=== PATIENT | female | born 1940 ===

== ENCOUNTER 2017-06-17 07:23 | Day surgery (SDC) | payer MEDICARE, MEDICAID ==
[2017-06-17] MEDS ORDERED: Propofol 10 mg/ml Inj (20 ML) ONE ×3 (10:44→10:57)
[2017-06-17] MEDS ORDERED: Lactated Ringer's 500 ML IV SCH (10:45)
[2017-06-17] MEDS ORDERED: Glucagon Recombinant 1 mg Inj ONE (10:56)
[2017-06-17] MEDS ORDERED: Midazolam 2 MG/2 ML VIAL ONE (10:56)
[2017-06-17 12:23] VITALS: O2SAT 100
[2017-06-17 13:09] VITALS: BP 165/67; PULSE 80; RESP 19; TEMP 97.2
== END 2017-06-17 13:05 | disposition home or self-care (01) ==
LOC: C.ENDO 07:23
PROVIDERS: ATTEND Internal Medicine Gastroenterology
DX: K22.2 Esophageal obstruction (principal); I10 Essential (primary) hypertension; R63.4 Abnormal weight loss
CPT/HCPCS: 43235; 88305; J1610; J2250; J2704; J7120

== ENCOUNTER 2017-12-26 09:04 | Inpatient (IN) | payer MEDICARE, MEDICAID ==
--- NOTE | 2017-12-26 09:35 | C.PDOC ---
History Of Present Illness 77 year old female is referred to ED by PMD for admission for symptomatic anemia. Patient has history of esophageal stricture, pending dilation 12/27. Patient is s/p outpatient labs with H/H 02/09. Family states unknown source. Denies GI bleed symptoms. Pt complains of worsening generalized weakness, difficulty eating and swallowing due to throat pain for the past several months. Pt is currently asymptomatic. referred BY PMD FOR ADMISSION FOR SYMPTOMATIC ANEMIA. HO ESOPHAGEAL STRICTURE, PENDING DILATION 12/27. S/P OUTPT LABS W H/H 02/09. FAMILY STATES UNK SOURCE. DENIES GI BLEED SX. CO WORSENING GEN WEAKNESS, DIFFICULTY EATING AND SWALLOWING DUE TO THROAT PAIN X SEV MONTHS. CURRENTLY ASYMPT. EXAM NAD NONTOXIC HEENT +PALLOR ABD NEG GOOD TURGOR REMAINDER NEG MDM PT W REFERRAL NOTE FROM PMD, INSTRUCTION FOR ADMISSION. Time Seen by Provider: 12/26/17 09:20 Chief Complaint (Nursing): Abnormal Labs History Per: Patient History/Exam Limitations: no limitations Onset/Duration Of Symptoms: Days Current Symptoms Are (Timing): Still Present Recent travel outside of the [place]: No Additional History Per: Patient Past Medical History Reviewed: Historical Data, Nursing Documentation, Vital Signs Vital Signs: Last Vital Signs Temp 98.4 F 12/26/17 10:30 Pulse 69 12/26/17 10:30 Resp 18 12/26/17 10:30 BP 158/72 H 12/26/17 10:30 Pulse Ox 100 12/26/17 10:30 - Medical History PMH: Arthritis, HTN Denies: Chronic Kidney Disease Family History: States: Unknown Family Hx - Social History Hx Alcohol Use: No Hx Substance Use: No - Immunization History Hx Tetanus Toxoid Vaccination: No Hx Influenza Vaccination: No Hx Pneumococcal Vaccination: No Review Of Systems Except As Marked, All Systems Reviewed And Found Negative. Constitutional: Positive for: Weakness. Negative for: Fever, Chills ENT: Positive for: Throat Pain Cardiovascular: Negative for: Chest Pain Respiratory: Negative for: Shortness of Breath Gastrointestinal: Negative for: Vomiting, Abdominal Pain, Diarrhea, Melena, Hematochezia, Hematemesis Physical Exam - Physical Exam Appears: Non-toxic, No Acute Distress Skin: Warm, Dry, Pale (pallor), Other (good turgor) Head: Atraumatic, Normacephalic Eye(s): bilateral: Normal Inspection Oral Mucosa: Moist Neck: Normal ROM, Supple Cardiovascular: Rhythm Regular, No Murmur Respiratory: Normal Breath Sounds, No Rales, No Rhonchi, No Wheezing Gastrointestinal/Abdominal: Soft, No Tenderness, No Guarding, No Rebound Back: No CVA Tenderness Extremity: Normal ROM Neurological/Psych: Oriented x3, Normal Speech ED Course And Treatment - Laboratory Results Result Diagrams: 12/26/17 09:53 12/26/17 09:53 ECG: Interpreted By Me, Viewed By Me ECG Rhythm: Sinus Rhythm ECG Interpretation: No Acute Changes Rate From EC (bpm) O2 Sat by Pulse Oximetry: 96 (RA) Pulse Ox Interpretation: Normal - Radiology CXR: Interpreted by Me, Viewed By Me CXR Interpretation: Yes: No Acute Disease Medical Decision Making Medical Decision Making: Pt has referral note from PMD with instructions for admission. Disposition Counseled Patient/Family Regarding: Studies Performed, Diagnosis - Disposition Disposition: HOSPITALIZED Disposition Time: 09:38 Condition: STABLE - POA Present On Arrival: None - Clinical Impression Clinical Impression: Symptomatic anemia, Esophageal stricture - Scribe Statement The provider has reviewed the documentation as recorded by the Scribe Rosette Ruggiero All medical record entries made by the Scribe were at my direction and personally dictated by me. I have reviewed the chart and agree that the record accurately reflects my personal performance of the history, physical exam, medical decision making, and the department course for this patient. I have also personally directed, reviewed, and agree with the discharge instructions and disposition. Decision To Admit - Pt Status Changed To: Hospital Disposition Of: Inpatient - Admit Certification Admit to Inpatient:: After my assessment, the patient will require hospitalization for at least two midnights. This is because of the severity of symptoms shown, intensity of services needed, and/or the medical risk in this patient being treated as an outpatient. - InPatient: Physician Admission Certification: I certify that this patient requires 2 or more midnights of care for the following reason:: SEE NOTE - . Bed Request Type: Regular Admitting Physician: Kalia Ruggiero Patient Diagnosis: Symptomatic anemia, Esophageal stricture
[2017-12-26 10:01] LABS: BASO # 0.1 K/uL (0.0-0.2); BASO % 2.2 % (0.0-2.0); EOS # 0.2 K/uL (0.0-0.7); EOS % 3.2 % (0.0-4.0); LYMPH # 1.3 K/uL (1.0-4.3); LYMPH % 24.9 % (20.0-40.0); MEAN CELL VOLUME 59.2 fL (81.0-99.0); MEAN CORPUSCULAR HEMOGLOBIN 17.9 pg (27.0-31.0); MEAN CORPUSCULAR HGB CONC 30.3 g/dL (33.0-37.0); MEAN PLATELET VOLUME 9.1 fL (7.2-11.7); MONO # 0.4 K/uL (0.0-0.8); MONO % 7.5 % (0.0-10.0); NEUT # 3.3 K/uL (1.8-7.0); NEUT % 62.2 % (50.0-75.0); NRBC % 0.1 % (0.0-2.0); RBC 3.43 Mil/uL (3.80-5.20); RED CELL DISTRIBUTION WIDTH 20.1 % (11.5-14.5); WHITE BLOOD COUNT 5.3 K/uL (4.8-10.8)
[2017-12-26 10:11] LABS: HEMOGLOBIN 6.1 g/dL (11.0-16.0)
[2017-12-26 10:19] LABS: INR 1.1; PROTHROMBIN TIME 12.1 SECONDS (9.7-12.2)
[2017-12-26 10:25] LABS: BLOOD UREA NITROGEN 12 mg/dL (7-17); CALCIUM 8.8 mg/dl (8.6-10.4); GFR AFRICAN-AMERICAN > 60; GFR NON-AFRICAN AMERICAN > 60
--- NOTE | 2017-12-26 11:27 | RAD ---
PROCEDURE: CHEST RADIOGRAPH, 1 VIEW HISTORY: ANEMIA COMPARISON: Comparison chest dated 03/14/2015 FINDINGS: LUNGS: Poor inspiration with low lung volumes, crowded bronchovascular markings and mild bibasilar atelectasis. PLEURA: No pneumothorax or pleural fluid seen. CARDIOVASCULAR: Heart size is upper limits of normal. . Dense mitral valve calcification present. OSSEOUS STRUCTURES: Degenerative osteoarthritis both shoulder girdles. . Multilevel degenerative spondylosis of the thoracic spine. VISUALIZED UPPER ABDOMEN: Normal. OTHER FINDINGS: None. IMPRESSION: Poor inspiration with low lung volumes, crowded bronchovascular markings and mild bibasilar atelectasis.
[2017-12-26] MEDS ORDERED: Enoxaparin 30 mg Syringe SC SCH (11:45)
[2017-12-27 06:44] LABS: FREE T4 1.25 ng/dL (0.78-2.19)
[2017-12-27 06:50] LABS: LDL CHOLESTEROL 90 mg/dL (0-129)
[2017-12-27 06:53] LABS: BLOOD UREA NITROGEN 9 mg/dL (7-17); CALCIUM 9.3 mg/dl (8.6-10.4); GFR AFRICAN-AMERICAN > 60; GFR NON-AFRICAN AMERICAN > 60; HDL CHOLESTEROL 36 mg/dL (30-70)
[2017-12-27 06:59] LABS: BASO # 0.2 K/uL (0.0-0.2); EOS # 0.4 K/uL (0.0-0.7); EOS % 4.6 % (0.0-4.0); HEMOGLOBIN 10.2 g/dL (11.0-16.0); LYMPH % 25.2 % (20.0-40.0); MEAN CELL VOLUME 68.9 fL (81.0-99.0); MEAN CORPUSCULAR HGB CONC 31.9 g/dL (33.0-37.0); MONO # 0.6 K/uL (0.0-0.8); MONO % 7.8 % (0.0-10.0); NEUT # 4.8 K/uL (1.8-7.0); NEUT % 60.4 % (50.0-75.0); NRBC % 0.1 % (0.0-2.0); RBC 4.63 Mil/uL (3.80-5.20); RED CELL DISTRIBUTION WIDTH 28.5 % (11.5-14.5)
--- NOTE | 2017-12-27 07:19 | HP ---
HISTORY OF PRESENT ILLNESS: This is a 77-year-old [place]yanese female who came to the office with history of dizziness, fatigue, dysphagia, and loss of appetite. The patient complains of loss of weight also. The patient has history going on for the last few months. The patient was evaluated by Dr. Kyle Butt for GI complaints. The patient found to have esophageal stricture. The patient never went for followup. Now, the patient has symptomatic anemia with hemoglobin 6.2. No other complaints. No fever, no chills. REVIEW OF SYSTEMS: CARDIOVASCULAR: Negative for chest pain. RESPIRATORY: Negative for shortness of breath. GI: Dysphagia present. REGENERATOR OPERATOR: No focal neurological deficit. No edema of the legs. PSYCHIATRIC: The patient is stable. : No urinary complaints. All other systems negative. PAST MEDICAL HISTORY: History of hypertension, no diabetes, history of arthritis, atherosclerotic heart disease. ALLERGIES: NO KNOWN ALLERGIES. MEDICATIONS: The patient on amlodipine for high blood pressure. SOCIAL HISTORY: Nonsmoker, nonalcoholic, no IVDA. PHYSICAL EXAMINATION: GENERAL: This is a 77-year-old [place]ese female, alert, oriented, comfortable. VITAL SIGNS: With temperature 98.3, pulse 84, respirations 18, and blood pressure 157/73 mmHg. HEENT: Normal. NECK: JVP is flat. Carotids, no bruits. LUNGS: No rales, no wheezing. HEART: S1 and S2 normal. No gallop, no murmur. ABDOMEN: Soft, nontender. No organomegaly. REGENERATOR OPERATOR: No focal neurological deficit. EXTREMITIES: No edema of the legs. LABORATORY DATA: On admission, hemoglobin is 6.1. IMPRESSION: Symptomatic severe anemia, iron-deficiency; esophageal stricture. PLAN: The patient will be admitted to the floor. We will give blood transfusion. GI evaluation and other workup as needed. Kalia Ruggiero MD
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
[2017-12-27] MEDS ORDERED: Pantoprazole 40 mg EC Tab PO SCH (10:00)
--- NOTE | 2017-12-27 12:01 | CP.PCM.PN ---
Subjective - Date & Time of Evaluation Date of Evaluation: 12/27/17 Time of Evaluation: 11:59 - Subjective Subjective: BLOOD TRANSFUSION GIVEN 2 UNITS. HB 10.2. DYSPHAGIA PRESENT. Objective - Vital Signs/Intake and Output Vital Signs (last 24 hours): Temp Pulse Resp BP Pulse Ox 98.1 F 70 20 172/96 H 98 12/27/17 08:04 12/27/17 08:04 12/27/17 08:04 12/27/17 08:04 12/27/17 08:04 Intake and Output: 12/27/17 12/27/17 06:59 18:59 Intake Total 850 0 Balance 850 0 - Medications Medications: Current Medications Amlodipine Besylate (Norvasc) 5 mg PO DAILY [facility] Last Admin: 12/27/17 09:44 Dose: 5 mg Pantoprazole Sodium (Protonix Inj) 40 mg IVP Q12H [facility] Last Admin: 12/27/17 09:45 Dose: 40 mg Pneumococcal Polyvalent Vaccine (Pneumovax 23 Vaccine) 0.5 ml IM .ONCE ONE Stop: 12/28/17 10:01 - Labs Labs: 12/27/17 05:59 12/27/17 05:59 PT 12.1 SECONDS (9.7-12.2) 12/26/17 09:53 INR 1.1 12/26/17 09:53 APTT 28 SECONDS (21-34) 12/26/17 09:53 - Constitutional Appears: No Acute Distress - Eye Exam Eye Exam: EOMI, Normal appearance, PERRL Pupil Exam: NORMAL ACCOMODATION, PERRL - ENT Exam ENT Exam: Mucous Membranes Moist, Normal Exam - Respiratory Exam Respiratory Exam: Clear to Ausculation Bilateral, NORMAL BREATHING PATTERN - Cardiovascular Exam Cardiovascular Exam: REGULAR RHYTHM, +S1, +S2. absent: Murmur - GI/Abdominal Exam GI & Abdominal Exam: Soft, Normal Bowel Sounds. absent: Tenderness - Extremities Exam Extremities Exam: Full ROM, Normal Capillary Refill, Normal Inspection. absent : Joint Swelling, Pedal Edema - Back Exam Back Exam: NORMAL INSPECTION - Neurological Exam Neurological Exam: Alert, Awake, CN II-XII Intact, Normal Gait, Oriented x3 - Psychiatric Exam Psychiatric exam: Normal Affect, Normal Mood Assessment and Plan - Assessment and Plan (Free Text) Assessment: ANEMIA. ESOPHAGEAL STRICTURE. Plan: FOR EGD TODAY.
[2017-12-27] MEDS ORDERED: Propofol 10 mg/ml Inj (20 ML) ONE (13:45)
--- NOTE | 2017-12-27 19:04 | RAD ---
PROCEDURE: Intraoperative Fluoroscopy. HISTORY: ANEMIA,DYSPHAGIA FINDINGS: Fluoroscopic assistance was provided esophageal stricture Please refer to the operative report from [facility]. Total fluoroscopic time (continuous mode) utilized during the procedure 11.2 (seconds).
[2017-12-28 07:46] LABS: BASO # 0.1 K/uL (0.0-0.2); BASO % 1.2 % (0.0-2.0); EOS # 0.5 K/uL (0.0-0.7); EOS % 5.6 % (0.0-4.0); HEMOGLOBIN 9.9 g/dL (11.0-16.0); LYMPH # 1.2 K/uL (1.0-4.3); LYMPH % 14.3 % (20.0-40.0); MEAN CELL VOLUME 67.3 fL (81.0-99.0); MEAN CORPUSCULAR HEMOGLOBIN 21.6 pg (27.0-31.0); MEAN PLATELET VOLUME 9.3 fL (7.2-11.7); MONO # 0.6 K/uL (0.0-0.8); MONO % 6.9 % (0.0-10.0); NEUT # 6.2 K/uL (1.8-7.0); RBC 4.61 Mil/uL (3.80-5.20); RED CELL DISTRIBUTION WIDTH 28.9 % (11.5-14.5); WHITE BLOOD COUNT 8.6 K/uL (4.8-10.8)
[2017-12-28 07:58] LABS: IRON 31 ug/dL (37-170)
[2017-12-28 08:00] LABS: ALB/GLOB RATIO 1.3 (1.0-2.1); ALBUMIN 3.7 g/dL (3.5-5.0); ALT/SGPT 12 U/L (9-52); AST/SGOT 32 U/L (14-36); BLOOD UREA NITROGEN 9 mg/dL (7-17); CALCIUM 9.2 mg/dl (8.6-10.4); GFR AFRICAN-AMERICAN > 60; GFR NON-AFRICAN AMERICAN > 60
[2017-12-28 08:17] LABS: % IRON SATURATION 6 (20-55); TOTAL IRON BINDING CAPACITY 488 ug/dL (250-450)
[2017-12-28 08:38] LABS: FERRITIN 8.2 ng/mL
--- NOTE | 2017-12-28 08:44 | CP.PCM.PN ---
<Josef Ruggiero - Last Filed: 12/28/17 08:44> Subjective - Date & Time of Evaluation Date of Evaluation: 12/28/17 Time of Evaluation: 08:00 - Subjective Subjective: PGY4 GI Follow-up Pt seen and examined bedside Denies any abd pain +BM denies any BRBPR no ther complaints ROS: 12 point ROS conducted, neg other than above Objective - Vital Signs/Intake and Output Vital Signs (last 24 hours): Temp Pulse Resp BP Pulse Ox 98.1 F 75 20 143/67 100 12/28/17 08:06 12/28/17 08:06 12/28/17 08:06 12/28/17 08:06 12/28/17 08:06 Intake and Output: 12/28/17 12/28/17 06:59 18:59 Intake Total 300 Balance 300 - Medications Medications: Current Medications Amlodipine Besylate (Norvasc) 5 mg PO DAILY [facility] Last Admin: 12/27/17 09:44 Dose: 5 mg Pantoprazole Sodium (Protonix Inj) 40 mg IVP Q12H [facility] Last Admin: 12/27/17 21:10 Dose: 40 mg Pneumococcal Polyvalent Vaccine (Pneumovax 23 Vaccine) 0.5 ml IM .ONCE ONE Stop: 12/28/17 10:01 - Labs Labs: 12/28/17 07:35 12/28/17 07:35 PT 12.1 SECONDS (9.7-12.2) 12/26/17 09:53 INR 1.1 12/26/17 09:53 APTT 28 SECONDS (21-34) 12/26/17 09:53 - Constitutional Appears: Well, No Acute Distress - Head Exam Head Exam: ATRAUMATIC, NORMOCEPHALIC - Eye Exam Eye Exam: Normal appearance - ENT Exam ENT Exam: Mucous Membranes Moist, Normal Exam Additional comments: glossitis - Neck Exam Neck Exam: Normal Inspection - Respiratory Exam Respiratory Exam: Clear to Ausculation Bilateral, NORMAL BREATHING PATTERN. absent: Rales, Rhonchi, Wheezes, Respiratory Distress - Cardiovascular Exam Cardiovascular Exam: REGULAR RHYTHM, +S1, +S2 - GI/Abdominal Exam GI & Abdominal Exam: Soft, Normal Bowel Sounds. 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 Butt <Kyle Butt - Last Filed: 12/28/17 08:57> Objective - Vital Signs/Intake and Output Vital Signs (last 24 hours): Temp Pulse Resp BP Pulse Ox 98.1 F 75 20 143/67 100 12/28/17 08:06 12/28/17 08:06 12/28/17 08:06 12/28/17 08:06 12/28/17 08:06 Intake and Output: 12/28/17 12/28/17 06:59 18:59 Intake Total 300 Balance 300 - Medications Medications: Current Medications Amlodipine Besylate (Norvasc) 5 mg PO DAILY [facility] Last Admin: 12/27/17 09:44 Dose: 5 mg Bisacodyl (Dulcolax) 5 mg PO ONCE ONE Stop: 12/28/17 17:01 Pantoprazole Sodium (Protonix Inj) 40 mg IVP Q12H [facility] Last Admin: 12/27/17 21:10 Dose: 40 mg Pneumococcal Polyvalent Vaccine (Pneumovax 23 Vaccine) 0.5 ml IM .ONCE ONE Stop: 12/28/17 10:01 Polyethylene Glycol/Electrolytes (Golytely) 4,000 ml PO ONCE ONE Stop: 12/28/17 13:01 - Labs Labs: 12/28/17 07:35 12/28/17 07:35 PT 12.1 SECONDS (9.7-12.2) 12/26/17 09:53 INR 1.1 18 09:53 APTT 28 SECONDS (21-34) 12/26/17 09:53 Attending/Attestation - Attestation I have personally seen and examined this patient.: Yes I have fully participated in the care of the patient.: Yes I have reviewed all pertinent clinical information, including history, physical exam and plan: Yes Notes (Text): 12/28/17 08:55 I have seen and examined patient with GI fellow. No acute events overnight, her swallowing has improved and she is able to tolerate PO liquids without difficulty. She denies nausea, vomiting, fever/chills. Review of vitals from today are normal. HTN Anemia Dysphagia - s/p EGD with dilation of proximal esophageal stricture - Liquid diet as tolerated - H/H stable, s/p PRBC transfusion, continue to monitor - Await biopsy results from EGD - Obtain CT imaging of abdomen/pelvis for further evaluation of anemia - Plan for colonoscopy tomorrow given prior suspicion of IBD which may contribute to clinical picture. Golytely bowel preparation today, NPO after midnight.
[2017-12-28] MEDS ORDERED: Pneumococcal 23-Valent Vaccine IM ONE (10:00)
[2017-12-28] MEDS ORDERED: Iohexol 240 (50 ml) PO ONE (10:15)
--- NOTE | 2017-12-28 11:35 | CP.PCM.PN ---
Subjective - Date & Time of Evaluation Date of Evaluation: 12/28/17 Time of Evaluation: 11:33 - Subjective Subjective: post dilatation esophagus. anemia. for colonoscopy. htn Objective - Vital Signs/Intake and Output Vital Signs (last 24 hours): Temp Pulse Resp BP Pulse Ox 98.1 F 75 20 143/67 100 12/28/17 08:06 12/28/17 08:06 12/28/17 08:06 12/28/17 08:06 12/28/17 08:06 Intake and Output: 12/28/17 12/28/17 06:59 18:59 Intake Total 300 Balance 300 - Medications Medications: Current Medications Amlodipine Besylate (Norvasc) 5 mg PO DAILY [facility] Last Admin: 12/28/17 10:12 Dose: 5 mg Bisacodyl (Dulcolax) 5 mg PO ONCE ONE Stop: 12/28/17 17:01 Pantoprazole Sodium (Protonix Inj) 40 mg IVP Q12H [facility] Last Admin: 12/28/17 10:12 Dose: 40 mg Polyethylene Glycol/Electrolytes (Golytely) 4,000 ml PO ONCE ONE Stop: 12/28/17 13:01 - Labs Labs: 12/28/17 07:35 12/28/17 07:35 PT 12.1 SECONDS (9.7-12.2) 12/26/17 09:53 INR 1.1 12/26/17 09:53 APTT 28 SECONDS (21-34) 12/26/17 09:53 - Constitutional Appears: No Acute Distress, Chronically Ill - Eye Exam Eye Exam: EOMI, Normal appearance, PERRL Pupil Exam: NORMAL ACCOMODATION, PERRL - ENT Exam ENT Exam: Mucous Membranes Moist, Normal Exam - Neck Exam Neck Exam: Full ROM, Normal Inspection. absent: Lymphadenopathy - Respiratory Exam Respiratory Exam: Clear to Ausculation Bilateral, NORMAL BREATHING PATTERN - Cardiovascular Exam Cardiovascular Exam: REGULAR RHYTHM, +S1, +S2. absent: Murmur - GI/Abdominal Exam GI & Abdominal Exam: Soft, Normal Bowel Sounds. absent: Tenderness - Extremities Exam Extremities Exam: Full ROM, Normal Capillary Refill, Normal Inspection. absent : Joint Swelling, Pedal Edema - Neurological Exam Neurological Exam: Alert, Awake, CN II-XII Intact, Normal Gait, Oriented x3 - Psychiatric Exam Psychiatric exam: Normal Affect, Normal Mood Assessment and Plan - Assessment and Plan (Free Text) Assessment: esophageal stricture. anemia. ibd. colitis. Plan: as per gi. colonoscopy.
[2017-12-28] MEDS ORDERED: Peg-Electrolyte Oral Soln 4L (Golytely) PO ONE (13:00)
[2017-12-28] MEDS ORDERED: Iodixanol 320 MG/ML 100 ML BOTTLE IV ONE (13:51)
--- NOTE | 2017-12-28 15:06 | CT ---
PROCEDURE: CT Abdomen and Pelvis with contrast HISTORY: abd pain, hx of colitis COMPARISON: None. TECHNIQUE: Contrast dose: 100 mL Visipaque 320 Radiation dose: Total exam DLP = 455.11 mGy-cm. This CT exam was performed using one or more of the following dose reduction techniques: Automated exposure control, adjustment of the mA and/or kV according to patient size, and/or use of iterative reconstruction technique. FINDINGS: LOWER THORAX: Unremarkable. LIVER: Unremarkable. No gross lesion or ductal dilatation. GALLBLADDER AND BILE DUCTS: Unremarkable. PANCREAS: Unremarkable. No gross lesion or ductal dilatation. SPLEEN: Unremarkable. ADRENALS: Unremarkable. No mass. KIDNEYS AND URETERS: Right upper pole renal cortical cyst, 3.1 cm. Left upper pole exophytic cortical cyst, 1.2 cm. No calculus or hydronephrosis. VASCULATURE: Unremarkable. No aortic aneurysm. BOWEL: Unremarkable. No obstruction. No gross mural thickening. APPENDIX: Normal appendix. PERITONEUM: Unremarkable. No free fluid. No free air. LYMPH NODES: No retroperitoneal or pelvic lymphadenopathy. Few shotty subcentimeter nodes medial to the cecum and ascending colon. Possible mesenteric adenitis. BLADDER: Unremarkable. REPRODUCTIVE: Normal postmenopausal uterus BONES: Grade 1 anterolisthesis at L4-5 without spondylolysis. OTHER FINDINGS: None. IMPRESSION: Possible mesenteric adenitis. No evidence of colitis or enteritis. Minor findings as above.
[2017-12-28] MEDS ORDERED: Bisacodyl 5mg EC Tab PO ONE (17:00)
[2017-12-28] MEDS: Ferric Sodium Gluconat Complex 62.5 mg/5 ml Vial IVPB SCH (17:22)
[2017-12-28] MEDS: Dextrose 5%/0.45% NS 1,000 ML IV SCH (17:22)
[2017-12-29] MEDS: Dextrose 5%/0.45% NS 1,000 ML IV SCH ×4 (04:15→21:33)
[2017-12-29 07:15] LABS: BASO # 0.1 K/uL (0.0-0.2); BASO % 1.5 % (0.0-2.0); EOS # 0.4 K/uL (0.0-0.7); EOS % 5.6 % (0.0-4.0); HEMOGLOBIN 10.1 g/dL (11.0-16.0); LYMPH # 0.9 K/uL (1.0-4.3); LYMPH % 14.1 % (20.0-40.0); MEAN CORPUSCULAR HEMOGLOBIN 21.8 pg (27.0-31.0); MEAN CORPUSCULAR HGB CONC 32.1 g/dL (33.0-37.0); MEAN PLATELET VOLUME 8.8 fL (7.2-11.7); MONO # 0.6 K/uL (0.0-0.8); MONO % 9.3 % (0.0-10.0); NEUT # 4.6 K/uL (1.8-7.0); NEUT % 69.5 % (50.0-75.0); RBC 4.64 Mil/uL (3.80-5.20); RED CELL DISTRIBUTION WIDTH 29.3 % (11.5-14.5); WHITE BLOOD COUNT 6.6 K/uL (4.8-10.8)
[2017-12-29 08:16] LABS: BLOOD UREA NITROGEN 7 mg/dL (7-17); CALCIUM 9.5 mg/dl (8.6-10.4); GFR AFRICAN-AMERICAN > 60; GFR NON-AFRICAN AMERICAN > 60
[2017-12-29] MEDS ORDERED: Bisacodyl 5mg EC Tab PO ONE (10:06)
[2017-12-29] MEDS: Ferric Sodium Gluconat Complex 62.5 mg/5 ml Vial IVPB SCH (10:28)
--- NOTE | 2017-12-29 12:05 | CP.PCM.PN ---
Subjective - Date & Time of Evaluation Date of Evaluation: 12/29/17 Time of Evaluation: 12:03 - Subjective Subjective: FEELS BETTER. COLONOSCOPY POSTPONED. INADEQUATE PREP. Objective - Vital Signs/Intake and Output Vital Signs (last 24 hours): Temp Pulse Resp BP Pulse Ox 97.8 F 70 20 153/75 H 99 12/29/17 07:47 12/29/17 07:47 12/29/17 07:47 12/29/17 07:47 12/29/17 07:47 Intake and Output: 12/29/17 12/29/17 06:59 18:59 Intake Total 0 Balance 0 - Medications Medications: Current Medications Amlodipine Besylate (Norvasc) 5 mg PO DAILY [facility] Last Admin: 12/29/17 10:30 Dose: 5 mg Ferric Sodium Gluconate Complex (Ferrlecit) 125 mg IVPB DAILY [facility] Stop: 01/05/18 15:46 Last Admin: 12/29/17 10:28 Dose: 125 mg Dextrose/Sodium Chloride (Dextrose 5%/0.45% Ns 1000 Ml) 1,000 mls @ 80 mls/hr IV .[id number] [facility] Last Admin: 12/29/17 06:59 Dose: 80 mls/hr Pantoprazole Sodium (Protonix Inj) 40 mg IVP Q12H [facility] Last Admin: 12/29/17 10:30 Dose: 40 mg - Labs Labs: 12/29/17 06:59 12/29/17 06:59 PT 12.1 SECONDS (9.7-12.2) 12/26/17 09:53 INR 1.1 12/26/17 09:53 APTT 28 SECONDS (21-34) 12/26/17 09:53 - Constitutional Appears: No Acute Distress, Chronically Ill - Head Exam Head Exam: ATRAUMATIC, NORMAL INSPECTION, NORMOCEPHALIC - Eye Exam Eye Exam: EOMI, Normal appearance, PERRL Pupil Exam: NORMAL ACCOMODATION, PERRL - ENT Exam ENT Exam: Mucous Membranes Moist, Normal Exam - Neck Exam Neck Exam: Full ROM, Normal Inspection. absent: Lymphadenopathy - Respiratory Exam Respiratory Exam: Clear to Ausculation Bilateral, NORMAL BREATHING PATTERN - Cardiovascular Exam Cardiovascular Exam: REGULAR RHYTHM, +S1, +S2. absent: Murmur - GI/Abdominal Exam GI & Abdominal Exam: Soft, Normal Bowel Sounds. absent: Tenderness - Extremities Exam Extremities Exam: Full ROM, Normal Capillary Refill, Normal Inspection. absent : Joint Swelling, Pedal Edema - Neurological Exam Neurological Exam: Alert, Awake, CN II-XII Intact, Normal Gait, Oriented x3 - Psychiatric Exam Psychiatric exam: Normal Affect, Normal Mood Assessment and Plan - Assessment and Plan (Free Text) Assessment: SAME. Plan: CT PRESENT TREATMENT.
[2017-12-30 00:41] VITALS: O2SAT 98
[2017-12-30] MEDS: Dextrose 5%/0.45% NS 1,000 ML IV SCH (06:23)
[2017-12-30] MEDS ORDERED: Lactated Ringer's 1,000 ML IV ONE (09:10)
[2017-12-30] MEDS ORDERED: Propofol 10 mg/ml Inj (20 ML) ONE ×3 (09:11→09:39)
[2017-12-30 10:29] VITALS: TEMP 96.9
[2017-12-30 10:47] VITALS: BP 115/86; PULSE 77; RESP 19
[2017-12-30] MEDS: Ferric Sodium Gluconat Complex 62.5 mg/5 ml Vial IVPB SCH (11:00)
--- NOTE | 2017-12-30 15:05 | CP.PCM.PN ---
Subjective - Date & Time of Evaluation Date of Evaluation: 12/30/17 Time of Evaluation: 11:30 - Subjective Subjective: COLONOSCOPY DONE. STRICURE PRESENT RT COLON. DISCUUSED WITH DR. Jason LAWSON. POSSIBLE CROHN,S DISEASE. STABLE Objective - Vital Signs/Intake and Output Vital Signs (last 24 hours): Temp Pulse Resp BP Pulse Ox 96.9 F L 77 19 115/86 100 12/30/17 10:15 12/30/17 10:45 12/30/17 10:45 12/30/17 10:45 12/30/17 10:45 Intake and Output: 12/30/17 12/30/17 06:59 18:59 Intake Total 1530 890 Balance 1530 890 - Medications Medications: Current Medications Amlodipine Besylate (Norvasc) 5 mg PO DAILY [facility] Last Admin: 12/30/17 11:00 Dose: 5 mg Ferric Sodium Gluconate Complex (Ferrlecit) 125 mg IVPB DAILY [facility] Stop: 01/05/18 15:46 Last Admin: 12/30/17 11:00 Dose: 125 mg Dextrose/Sodium Chloride (Dextrose 5%/0.45% Ns 1000 Ml) 1,000 mls @ 80 mls/hr IV .[id number] [facility] Last Admin: 12/30/17 06:23 Dose: Not Given Pantoprazole Sodium (Protonix Ec Tab) 40 mg PO DAILY [facility] - Labs Labs: 12/29/17 06:59 12/29/17 06:59 PT 12.1 SECONDS (9.7-12.2) 12/26/17 09:53 INR 1.1 12/26/17 09:53 APTT 28 SECONDS (21-34) 12/26/17 09:53 - Constitutional Appears: No Acute Distress, Chronically Ill - Eye Exam Eye Exam: EOMI, Normal appearance, PERRL Pupil Exam: NORMAL ACCOMODATION, PERRL - ENT Exam ENT Exam: Mucous Membranes Moist, Normal Exam - Neck Exam Neck Exam: Full ROM, Normal Inspection. absent: Lymphadenopathy - Respiratory Exam Respiratory Exam: Clear to Ausculation Bilateral, NORMAL BREATHING PATTERN - Cardiovascular Exam Cardiovascular Exam: REGULAR RHYTHM, +S1, +S2. absent: Murmur - GI/Abdominal Exam GI & Abdominal Exam: Soft, Normal Bowel Sounds. absent: Tenderness - Extremities Exam Extremities Exam: Full ROM, Normal Capillary Refill, Normal Inspection. absent : Joint Swelling, Pedal Edema - Back Exam Back Exam: NORMAL INSPECTION - Neurological Exam Neurological Exam: Alert, Awake, CN II-XII Intact, Normal Gait, Oriented x3 - Psychiatric Exam Psychiatric exam: Normal Affect, Normal Mood Assessment and Plan - Assessment and Plan (Free Text) Assessment: ABOVE. Plan: FOR DISCHARGE HOME. F/U WITH DR. Balta LAWSON.
[2017-12-31] MEDS ORDERED: Pantoprazole 40 mg EC Tab PO SCH (10:00)
== END 2017-12-30 16:34 | disposition home or self-care (01) | DRG 811 ==
LOC: C.ER 09:04 → C.9E 09:39 → C.3T 10:14
PROVIDERS: ADMIT Internal Medicine; ATTEND Internal Medicine
PROC: 0DB68ZX Excision of Stomach, Via Natural or Artificial Opening Endoscopic, Diagnostic (ICD-10-PCS; 2017-12-27)
PROC: 0DB58ZX Excision of Esophagus, Via Natural or Artificial Opening Endoscopic, Diagnostic (ICD-10-PCS; 2017-12-27)
PROC: 0DB98ZX Excision of Duodenum, Via Natural or Artificial Opening Endoscopic, Diagnostic (ICD-10-PCS; principal; 2017-12-27 14:11)
PROC: 0DBK8ZX Excision of Ascending Colon, Via Natural or Artificial Opening Endoscopic, Diagnostic (ICD-10-PCS; 2017-12-30)
PROC: 0DBL8ZX Excision of Transverse Colon, Via Natural or Artificial Opening Endoscopic, Diagnostic (ICD-10-PCS; 2017-12-30)
PROC: 0DBN8ZX Excision of Sigmoid Colon, Via Natural or Artificial Opening Endoscopic, Diagnostic (ICD-10-PCS; 2017-12-30)
PROC: 0DBP8ZX Excision of Rectum, Via Natural or Artificial Opening Endoscopic, Diagnostic (ICD-10-PCS; 2017-12-30)
PROC: 0DBB8ZX Excision of Ileum, Via Natural or Artificial Opening Endoscopic, Diagnostic (ICD-10-PCS; 2017-12-30)
DX: D64.9 Anemia, unspecified (principal); Q39.4 Esophageal web; K31.5 Obstruction of duodenum; K56.699 Other intestinal obstruction unspecified as to partial versus complete obstruction; K22.2 Esophageal obstruction; K52.9 Noninfective gastroenteritis and colitis, unspecified; R63.3 Feeding difficulties; I10 Essential (primary) hypertension; K64.8 Other hemorrhoids; K22.8 Other specified diseases of esophagus; D50.9 Iron deficiency anemia, unspecified